=== PATIENT | male | born 1975 | race American Indian/Alaskan Native ===

== ENCOUNTER 2017-09-01 21:53 | Emergency (ER) | payer MEDICAID ==
[2017-09-01 22:16] LABS: Eosinophils % (Auto) 2.1 % (0.0-4.3); Hematocrit 41.1 % (35.5-45.6); Hemoglobin 14.2 gm/dl (11.8-15.2); Mean Corpuscular HGB Conc 35 % (32-34); Mean Corpuscular Hemoglobin 32 pg (28-32); Mean Corpuscular Volume 94 fl (84-94); Platelet Count 146 K/mm3 (140-440); Red Blood Count 4.39 M/mm3 (3.65-5.03); White Blood Count 8.2 K/mm3 (4.5-11.0)
[2017-09-01] MEDS ORDERED: ATIVAN IM ONE (22:31)
[2017-09-01 22:32] LABS: Anion Gap 17 mmol/L; BUN/Creatinine Ratio 11; Blood Urea Nitrogen 13 mg/dL (9-20); Calcium 9.3 mg/dL (8.4-10.2); Carbon Dioxide 27 mmol/L (22-30); Chloride 95.6 mmol/L (98-107); Glucose 92 mg/dL (75-100); Potassium 4.1 mmol/L (3.6-5.0); Sodium 135 mmol/L (137-145)
--- NOTE | 2017-09-01 22:46 | Emergency Department Report ---
ED Alcohol HPI - General Chief Complaint: Alcohol Stated Complaint: MH Time Seen by Provider: 09/01/17 22:24 Source: patient Mode of arrival: Ambulatory Limitations: No Limitations - History of Present Illness Initial Comments: Patient was found wandering outside hospital on ambulance bay obviously intoxicated and was brought into ED for further evaluation of alcohol intoxication patient also admits to ?meth use, pt was combative on arrival but no trauma noted, refuses to give further hx and uncooperative w. exam MD Complaint: alcohol intoxication Last Drink: unknown Previous Visits for Alcohol Intoxication?: No Recent Trauma: No - Related Data Allergies Allergy/AdvReac Type Severity Reaction Status Date / Time amphetamine [From Adderall] Allergy Unknown Verified 09/01/17 21:57 dextroamphetamine Allergy Unknown Verified 09/01/17 21:57 [From Adderall] haloperidol [From Haldol] Allergy Unknown Verified 09/01/17 21:57 tramadol Allergy Unknown Verified 09/01/17 21:57 ED Review of Systems ROS: Stated complaint: MH Other details as noted in HPI Comment: Unobtainable due to pts medical conditions ED Past Medical Hx - Social History Smoking Status: Current Every Day Smoker Substance Use Type: Alcohol, Methamphetamines ED Physical Exam - General Limitations: No Limitations, Other (intoxicated) General appearance: appears intoxicated, other (arousable and protecting airway) - Head Head exam: Present: atraumatic, normocephalic, normal inspection - Eye Eye exam: Present: normal appearance, PERRL, EOMI - Neck Neck exam: Present: normal inspection - Respiratory Respiratory exam: Present: normal lung sounds bilaterally. Absent: respiratory distress, wheezes, rales, rhonchi, stridor - Cardiovascular Cardiovascular Exam: Present: regular rate - GI/Abdominal GI/Abdominal exam: Present: soft. Absent: tenderness, guarding, rebound - Extremities Exam Extremities exam: Present: full ROM - Back Exam Back exam: Present: normal inspection - Neurological Exam Neurological exam: Absent: motor sensory deficit - Skin Skin exam: Absent: petechiae, pallor, ecchymosis ED Course Vital Signs 09/01/17 21:57 Temperature 98.3 F Pulse Rate 106 H Respiratory 18 Rate Blood Pressure 136/95 O2 Sat by Pulse 100 Oximetry ED Medical Decision Making - Lab Data Result diagrams: 09/01/17 22:08 12/16/17 22:08 - Radiology Data Radiology results: image reviewed - Medical Decision Making Patient has no signs of trauma is arousable but intoxicated with stable vital signs and airway, head was atraumatic normocephalic laboratory studies did return with a ethanol of 0.33 drug screen was negative the laboratory studies were unremarkable patient will be observed until sober with normal renal function, and protecting airway. Symptoms are consistent with ethanol intoxication he'll be observed in the ED until clinically sober and reevaluated when stable for d/c, ct head was obtained given prolonged somnolence and is nap per rad Critical care attestation.: If time is entered above; I have spent that time in minutes in the direct care of this critically ill patient, excluding procedure time. ED Disposition Clinical Impression: Alcohol intoxication Disposition: DC-01 TO HOME OR SELFCARE Is pt being admited?: No Condition: Stable Instructions: Alcohol Intoxication (ED) Additional Instructions: Return if new or alarming symptoms try to arrange outpatient detox at Referrals: PRIMARY CARE [Primary Care Provider] - 3-5 Days Time of Disposition: 01:55
[2017-09-01 23:40] LABS: Urine Drugs of Abuse Note Disclamer
[2017-09-02 00:03] LABS: Bilirubin,Urine NEG (Negative); Blood,Urine NEG (Negative); Ketones,Urine NEG (Negative); Leukocyte Esterase,Urine NEG (Negative); Nitrite,Urine NEG (Negative); Protein,Urine <15 mg/dL mg/dL (Negative); Urobilinogen,Urine < 2.0 mg/dL (<2.0)
[2017-09-02 00:37] LABS: RBC,Urine < 1.0 /HPF (0.0-6.0)
--- NOTE | 2017-09-02 01:41 | Cat Scan Report ---
FINAL REPORT EXAM: CT HEAD/BRAIN WO CON HISTORY: ams COMPARISON: None available. TECHNIQUE: Axial images obtained skull base through vertex. FINDINGS: No acute intracranial hemorrhage, midline shift or pathologic extra axial fluid collection. Ventricles and cisterns are normal in size and configuration for the patient's age. Casiano-white differentiation preserved. Calvarium grossly intact. Orbits are grossly unremarkable. Mild to moderate mucosal thickening the paranasal sinuses. Mastoid air cells are clear. Tiny benign pineal gland cyst measuring 9 x 6 millimeters. IMPRESSION: No grossly acute intracranial abnormality.
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
[2017-09-02] MEDS ORDERED: ATIVAN IM ONE (11:45)
[2017-09-02] MEDS ORDERED: TYLENOL PO ONE (11:45)
[2017-09-03] MEDS ORDERED: CARAFATE PO ONE (12:09)
[2017-09-03] MEDS ORDERED: BENTYL PO ONE (12:09)
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
[2017-09-03] MEDS: ZOLOFT PO SCH (17:53)
[2017-09-03] MEDS ORDERED: ATIVAN IM ONE (19:00)
[2017-09-03] MEDS ORDERED: ATIVAN ONE (19:04)
[2017-09-04] MEDS: ZOLOFT PO SCH (10:12)
[2017-09-04] MEDS ORDERED: TORADOL IM ONE (11:43)
--- NOTE | 2017-09-04 12:42 | Progress Note ---
Subjective - Reason for Consult Consult date: 09/04/17 Reason for consult: Psychiatry Follow-up - Chief Complaint Chief complaint: "When can I go to [place]" 42 y.o. AA male presenting to [facility] for ETOH. Today patient is calm and cooperative during the assessment. He stated that he still feel suicidal and hearing command voices telling him to harm himself. He denies HI's and VH's. Mental Status Exam - Vital signs Last Vital Signs Temp 98.7 F 09/04/17 09:07 Pulse 92 H 09/04/17 09:07 Resp 16 09/04/17 09:07 BP 134/88 09/04/17 09:07 Pulse Ox 98 09/04/17 09:07 - Exam Narrative exam: MSE: Appearance: calm, cooperative Behavior: regular eye contact Speech: regular rate and tone Mood: "okay" Affect: congruent to mood Thought Process: circumstantial Thought Content: denies HI's and VH's Motor Activity: sitting up in bed Cognition: A/O x3 Insight: variable Judgment: variable Assessment and Plan Impression: MDD with psychosis. Alcohol Use DO. Today patient is calm and cooperative during the assessment. Patient still endorses SI's. DDx: R/O Bipolar, Schizoaffective DO Recommendation/Plan: Continue 1013 with placement to inpatient psy services. Continue Seroquel 200 mg PO HS for mood/psychosis and Zoloft 50 mg PO HS for depression. Discussed possible suicidality/medication induced ian with patient reference Zoloft. Discussed possible metabolic side effects of Seroquel with patient.
[2017-09-05] MEDS: ZOLOFT PO SCH (11:40)
[2017-09-06] MEDS ORDERED: VISTARIL ONE (02:52)
[2017-09-06] MEDS ORDERED: VISTARIL PO PRN (03:00)
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
[2017-09-06] MEDS: ZOLOFT PO SCH (12:12)
[2017-09-06] MEDS: VISTARIL PO PRN ×2 (12:12→17:55)
[2017-09-06] MEDS: RisperDAL PO SCH (22:31)
[2017-09-07] MEDS: RisperDAL PO SCH (10:11)
[2017-09-07] MEDS: VISTARIL PO PRN (10:11)
[2017-09-07] MEDS: ZOLOFT PO SCH (10:11)
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
[2017-09-07 12:36] VITALS: BP 131/77
== END 2017-09-07 15:49 | disposition home or self-care (01) ==
LOC: ED 21:53 → EEVIPCON 21:53 → ED 09-07 15:49
DX: F10.129 Alcohol abuse with intoxication, unspecified (principal)
CPT/HCPCS: 36415; 70450; 80048; 80307; 81001; 85025; 96372; 99285; G0480; J1885; J2060; 80320; Q0177